=== PATIENT | female | born 1965 | race Hispanic/Latino ===

== ENCOUNTER → 2024-04-08 | Outpatient (CLI) | payer OTHER ==
[~2024-04-08] MED LIST: ALBU6.7H14 IH; BUDE1AMP2 IH; CYCL5TAB PO; DICL50TA9 PO; GABA300C PO; LEVO750T39 PO; LISI20TA24 PO; PRED10TA3 PO; TAMS-1 PO
== END | disposition home or self-care (01) ==
LOC: RAH 10:39
PROVIDERS: ATTEND Urology
DX: N20.0 Calculus of kidney (principal)
CPT/HCPCS: 74018; 76100